=== PATIENT | female | born 1995 | race Caucasian/White ===

== ENCOUNTER 2018-06-07 10:41 | Emergency (ER) | payer BC ==
[2018-06-07] MEDS ORDERED: NS 1,000 ML IV ONE ×2 (10:45)
--- NOTE | 2018-06-07 10:51 | EDPHY ---
H & P Time Seen by Provider: 06/07/18 10:46 HPI/ROS: HPI: This is a 23-year-old female who presents with Chief Complaint: Urinary tract infection, syncopal episode Location: lip Quality: laceration Duration: Prior to arrival Signs and Symptoms: no fever, no nausea, no vomiting, no hematemesis, no blood in stool, no abdominal bloating, no diarrhea, + back pain, + urinary symptoms, no vaginal bleeding/discharge, no indigestion, no chest pain, no shortness of breath Timing: Acute Severity:mild Context: HIP: Flexion to 125, extension to 115, hyper extension to 15, abduction to 45. Pain with internal rotation and external rotation. tenderness over greater trochanter. With patient was standing in line at [employer] and began to feel lightheaded. She then had a witnessed fainting episode hitting her lip on the counter in front of her. She was quickly right aroused. She remembers feeling lightheaded and getting warm and flushed prior to fainting. She reports that she has not ate or drank anything in the last 24 hr. She was seen in the emergency room right last night with complaints of burning with urination and low back pain for the last week. She was seen on Friday at urgent care and started abdomen Bactrim. Last night her urine showed 2+ bacteria and white blood cells and she was given 1 dose of Keflex and prescription for same. 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 Currently she denies any fever, nausea, vomiting, neck pain, headache, abdominal pain. Reports that her tetanus is current. Modifying Factors: None Comment: ROS: see HPI Constitutional: No fever, no chills, no weight loss Eyes: No blurred vision Respiratory: No shortness of breath, no cough Cardiovascular: No chest pain, no palpitations Gastrointestinal: No nausea, no vomiting, no diarrhea, no hematemesis, no blood in stool Genitourinary: No dysuria, no blood in urine Extremities: No myalgias, no edema Neurologic: No weakness, no numbness Skin: No rashes, no petechiae Hematologic: No bruising, no bleeding MEDICAL/SURGICAL/SOCIAL HISTORY: Medical history: Generally healthy. Does not take any regular medications. Surgical history: Denies Social history: Never smoked. Family history noncontributory. CONSTITUTIONAL: nontoxic-appearing polite and cooperative adult white female, awake and alert, no obvious distress HEENT: normocephalic, PERRL, EOMI. no globe entrapment, no raccoon eyes. no [place] signs.Tympanic membranes clear. No tympanic membrane rupture. Nares patent; no septal hematoma. Oropharynx clear, no exudate and moist pink mucosa. No malocclusion. no dental trauma. Airway patent. No lymphadenopathy. Irregular lower right side lip laceration that is not through and through. No active bleeding. NECK: supple, no midline tenderness, flexion 45 degrees, extension 45 degrees, right and left lateral flexion 45 degrees. No meningismus. Cardiovascular: Normal S1/S2, regular rate, regular rhythm, without murmur rub or gallop. PULMONARY/CHEST: Symmetrical and nontender. no crepitus. Clear to auscultation bilaterally. Good air movement. No accessory muscle usage. ABDOMEN: Soft, nondistended, nontender, no ecchymosis, no rebound, no guarding , no peritoneal signs, no masses or organomegaly. No CVAT. PELVIC: no pain with rocking; bilateral hips flexion 125 degrees, extension 30 degrees, with no pain internal rotation and no pain external rotation. BACK: No midline tenderness, no paraspinous spasm, deep tendon reflexes 2/2, no pain with straight leg raise EXTREMITIES: 2/2 pulses, no deformities, no clubbing, no cyanosis or edema. NEUROLOGICAL: no focal neuro deficits. GCS 15. SKIN: Warm and dry, no erythema. no rash. Good capillary refill. Source: Patient, EMS Exam Limitations: No limitations - Medical/Surgical History Hx Asthma: No Hx Chronic Respiratory Disease: No Hx Diabetes: No Hx Cardiac Disease: No Hx Renal Disease: No Hx Cirrhosis: No Hx Alcoholism: No Hx HIV/AIDS: No Hx Splenectomy or Spleen Trauma: No Other PMH: DENIES - Social History Smoking Status: Never smoked Constitutional: Initial Vital Signs Temperature (C) 37.3 C 06/07/18 10:48 Heart Rate 89 06/07/18 10:48 Respiratory Rate 18 06/07/18 10:48 Blood Pressure 91/74 L 06/07/18 10:48 O2 Sat (%) 95 06/07/18 10:48 O2 Delivery Mode Room Air Allergies/Adverse Reactions: No Known Allergies Allergy (Verified 06/07/18 10:47) Home Medications: Medication Instructions Recorded Cephalexin [Keflex (*)] 500 mg PO QID 7 Days cap 06/06/18 Control 06/07/18 Prozac 20 MG (*) 06/07/18 Medical Decision Making - Diagnostics Imaging Results: Imaging Impressions Finger X-Ray 06/07/18 12:04 Impression: 1. Volar plate avulsion fracture of the middle phalanx. 2. Sclerosis in the distal phalanx of the 4th finger, possibly related to bone island or less likely sequela of old trauma. Clinical correlation is recommended. Procedures: Procedure: Laceration repair. Verbal consent was obtained from the patient. The complex, superficial 2 cm laceration on the right lower lip was anesthetized in the usual fashion. The wound was irrigated, draped and explored to its base with a gloved finger. There were no deep structures involved. No tendon injury was identified. The wound was repaired with #7, 5-0 Vicryl. The procedure was performed by myself. ED Course/Re-evaluation: Vital signs stable upon arrival. No systemic signs. Labs, IV fluids, laceration repair ordered Tetanus is current. Left urinalysis from last night that shows 2+ bacteria in 50 did at 182 WBCs. Lab called and urine culture was sent and is pending. Given 2 L normal saline and 2 g of IV Rocephin. Laceration repaired with #7 absorbable sutures. 1135: Labs reviewed. No signs of leukocytosis/anemia/platelet dysfunction/PAXTON/ electrolyte imbalance/sepsis. Urine culture and blood culture results pending. 1210: Notified by nurse that patient now complaining of left pinky pain and she believes she may have broke it during the fall. Left finger x-ray ordered. Left finger x-ray my read shows no signs of fracture, dislocation. Radiology questions volar plate avulsion fracture of the middle phalanx. Patient has no pain at the site. Patient hira-taped. 1430: Reassessed patient who reports significant relief of symptoms. Offer patient admission due to urinary tract infection and syncopal episode and she politely declined due to feeling better. Mother at bedside agrees that patient is safe to be discharged home. Patient advises that she still has her Keflex prescription that was given to her yesterday in the ER. This patient was seen under the supervision of my secondary supervising physician. I evaluated care for this patient independently. Discussed this patient with Dr. Butcher. Addendum 525: urine cx growing GNR. Differential Diagnosis: Syncope including but not limited to vasovagal syncope, arrhythmia, dehydration , and blood loss. - Data Points Laboratory Results: Laboratory Results 06/07/18 10:34 06/07/18 10:34 06/07/18 06/07/18 06/07/18 10:34 10:34 10:34 WBC 11.09 10^3/uL H 10^3/uL (3.80-9.50) RBC 4.47 10^6/uL 10^6/uL (4.18-5.33) Hgb 12.3 g/dL L g/dL (12.6-16.3) Hct 37.4 % L % (38.0-47.0) MCV 83.7 fL fL (81.5-99.8) MCH 27.5 pg L pg (27.9-34.1) MCHC 32.9 g/dL g/dL (32.4-36.7) RDW 14.7 % % (11.5-15.2) Plt Count 306 10^3/uL 10^3/uL (150-400) MPV 9.3 fL fL (8.7-11.7) Neut % (Auto) 73.7 % % (39.3-74.2) Lymph % (Auto) 15.1 % % (15.0-45.0) [place] % (Auto) 10.6 % % (4.5-13.0) Eos % (Auto) 0.1 % L % (0.6-7.6) Baso % (Auto) 0.2 % L % (0.3-1.7) Nucleat RBC Rel Count 0.0 % % (0.0-0.2) Absolute Neuts (auto) 8.18 10^3/uL H 10^3/uL (1.70-6.50) Absolute Lymphs (auto) 1.67 10^3/uL 10^3/uL (1.00-3.00) Absolute Monos (auto) 1.18 10^3/uL H 10^3/uL (0.30-0.80) Absolute Eos (auto) 0.01 10^3/uL L 10^3/uL (0.03-0.40) Absolute Basos (auto) 0.02 10^3/uL 10^3/uL (0.02-0.10) Absolute Nucleated RBC 0.00 10^3/uL 10^3/uL (0-0.01) Immature Gran % 0.3 % % (0.0-1.1) Immature Gran # 0.03 10^3/uL 10^3/uL (0.00-0.10) VBG Lactic Acid 1.7 mmol/L mmol/L (0.7-2.1) Sodium 135 mEq/L mEq/L (135-145) Potassium 3.9 mEq/L mEq/L (3.3-5.0) Chloride 103 mEq/L mEq/L (97-110) Carbon Dioxide 19 mEq/l L mEq/l (22-31) Anion Gap 13 mEq/L mEq/L (8-16) BUN 11 mg/dL mg/dL (7-23) Creatinine 0.9 mg/dL mg/dL (0.6-1.0) Estimated GFR > 60 Glucose 115 mg/dL H mg/dL (70-100) Calcium 9.1 mg/dL mg/dL (8.5-10.4) Medications Given: Discontinued Medications Sodium Chloride (Ns) 1,000 mls @ 0 mls/hr IV ONCE ONE; Wide Open PRN Reason: Protocol Stop: 06/07/18 10:46 Last Admin: 06/07/18 10:55 Dose: 1,000 mls Sodium Chloride (Ns) 1,000 mls @ 0 mls/hr IV ONCE ONE; Wide Open PRN Reason: Protocol Stop: 06/07/18 10:46 Last Admin: 06/07/18 10:55 Dose: 1,000 mls Ceftriaxone Sodium 2 gm/ (Sodium Chloride) 50 mls @ 100 mls/hr IV EDNOW ONE PRN Reason: Protocol Stop: 06/07/18 12:06 Last Admin: 06/07/18 12:00 Dose: 50 mls Departure - Departure Disposition: Home, Routine, Self-Care Clinical Impression: Vasovagal syncope Urinary tract infection Qualifiers: Urinary tract infection type: acute cystitis Hematuria presence: without hematuria Qualified Code(s): N30.00 - Acute cystitis without hematuria Injury of left little finger Qualifiers: Encounter type: initial encounter Qualified Code(s): S69.92XA - Unspecified injury of left wrist, hand and finger(s), initial encounter Condition: Good Instructions: Urinary Tract Infection in Women (ED), Syncope (ED), Finger Fracture (ED) Additional Instructions: Consume a minimum of 8-10 glasses of water or electrolyte fluid replacement drinks that include Gatorade, Powerade, Pedialyte. Eat a bland diet for the next 48 hours and then slowly advance as tolerated. Start taking Keflex as directed tomorrow. Do not skip a dose. Urine culture is still pending and if antibiotic needs to be changed she will be contacted by the emergency room. Return to the ER immediately if you experience new, continued or worsening abdominal pain, fevers/chills, inability to tolerate oral intake, new pain, or any other symptoms that concern you. Referrals: PCP Not In,Dictionary [Medical Doctor] - 2-3 days, if not improved
[2018-06-07 11:09] LABS: PLATELET COUNT 306 10^3/uL (150-400)
[2018-06-07 12:59] VITALS: BP 120/71
== END 2018-06-07 12:59 | disposition home or self-care (01) ==
LOC: EDUNIT#
PROC: 0CQ1XZZ Repair Lower Lip, External Approach (ICD-10-PCS; principal; 2018-06-07)
DX: S01.511A Laceration without foreign body of lip, initial encounter (principal); S62.625A Displaced fracture of middle phalanx of left ring finger, initial encounter for closed fracture; R55 Syncope and collapse; N30.00 Acute cystitis without hematuria; E86.9 Volume depletion, unspecified; W22.8XXA Striking against or struck by other objects, initial encounter; Y99.8 Other external cause status; Y93.89 Activity, other specified
CPT/HCPCS: 96365; J0696